=== PATIENT | female | born 1975 ===

== ENCOUNTER 2021-11-22 07:00 | Inpatient (IN) | payer OTHER ==
[~2021-11-22] VITALS: Ht 167.6 cm; Wt 93.4 kg
[2021-11-22] MEDS ORDERED: ZESTORETIC 10-1 EACH PO (10:06)
== END 2021-11-27 13:27 | disposition home or self-care (01) | DRG 743 ==
LOC: SURH 11-25 07:00 → SURG-SUITE 11-25 07:41 → O/R 11-25 07:41 → SURH 11-25 08:30 → SURG-SUITE 11-25 12:09
PROVIDERS: ADMIT Obstetrics & Gynecology; ATTEND Obstetrics & Gynecology
PROC: 0UT70ZZ Resection of Bilateral Fallopian Tubes, Open Approach (ICD-10-PCS; 2021-11-25)
PROC: 0UT90ZZ Resection of Uterus, Open Approach (ICD-10-PCS; principal; 2021-11-25 08:30)
DX: D25.1 Intramural leiomyoma of uterus (principal); N80.0 Endometriosis of uterus; N72 Inflammatory disease of cervix uteri; N84.0 Polyp of corpus uteri; Z20.822 Contact with and (suspected) exposure to COVID-19